=== PATIENT | female | born 1990 | race Caucasian/White ===

== ENCOUNTER 2017-05-24 03:43 | Inpatient (IN) | payer OTHER ==
[~2017-05-24] VITALS: Ht 165.1 cm; Wt 81.8 kg
[~2017-05-24 03:43] MED LIST: PREN1TAB60 PO
[2017-05-24] MEDS ORDERED: NEWBORN KIT ONE (04:05)
[2017-05-24] MEDS ORDERED: MISOPROSTOL 200 MCG TABLET ONE (04:05)
[2017-05-24] MEDS ORDERED: OXYTOCIN 30U/ 0.9% NaCL 500ML 500 ML ONE (04:06)
[2017-05-24] MEDS: D5%-LACTATED RINGERS 1,000 ML IV SCH ×2 (04:08→12:08)
[2017-05-24] MEDS ORDERED: OXYTOCIN 30U/ 0.9% NaCL 500ML 500 ML IV ONE (04:08)
[2017-05-24] MEDS ORDERED: FENTANYL PF 100 MCG/2ML ONE ×2 (04:13→04:56)
[2017-05-24 04:18] VITALS: BP 123/78
[2017-05-24] MEDS ORDERED: SODIUM CITRATE/CITRIC ACID 30 ML UDC PO PRN (04:30)
[2017-05-24] MEDS ORDERED: FENTANYL PF 100 MCG/2ML IVPush PRN (04:30)
[2017-05-24] MEDS ORDERED: METOCLOPRAMIDE 5 MG/ML, 2ML IVPush PRN (04:30)
[2017-05-24] MEDS ORDERED: CALCIUM CARBONATE 500 MG TAB.CHEW PO PRN (04:30)
[2017-05-24] MEDS ORDERED: ONDANSETRON 2MG/ML, 2ML IVPush PRN ×2 (04:30→06:00)
[2017-05-24] MEDS ORDERED: FENTANYL PF 100 MCG/2ML IV PRN (04:30)
[2017-05-24] MEDS: LACTATED RINGERS 1,000 ML IV SCH ×4 (04:40→13:55)
[2017-05-24 04:45] LABS: BASOPHILS # (AUTO) 0.08 x10^3/uL (0-0.1); BASOPHILS % (AUTO) 1 % (0-1); EOSINOPHILS # (AUTO) 0.07 x10^3/uL (0-0.4); EOSINOPHILS % (AUTO) 1 % (1-7); LYMPHOCYTES # (AUTO) 2.18 x10^3/uL (1-3.4); LYMPHOCYTES % (AUTO) 15 % (22-44); MD NO; MEAN CORPUSCULAR HEMOGLOBIN 30.6 pg (27.0-34.8); MEAN CORPUSCULAR HGB CONC 33.2 g/dL (32.4-35.8); MEAN CORPUSCULAR VOLUME 92.1 fL (80-100); MEAN PLATELET VOLUME 9.1 fL (7.4-10.4); MONOCYTES % (AUTO) 7 % (2-9); NEUTROPHILS # (AUTO) 11.04 x10^3/uL (1.8-6.8); NEUTROPHILS % (AUTO) 77 % (42-75); PLATELET COUNT 240 x10^3/uL (130-400); RED BLOOD COUNT 3.73 x10^6/uL (3.82-5.3); RED CELL DISTRIBUTION WIDTH 13.3 % (9.6-15.2)
[2017-05-24] MEDS ORDERED: FENTANYL/BUPIV./NS/PF 250 ML EPIDCONT ONE (04:56)
[2017-05-24] MEDS ORDERED: BUPIVACAINE 0.25% ONE (04:56)
[2017-05-24] MEDS ORDERED: LIDOCAINE/PF 1.5%-EPI 1:200K, 30ML ONE (05:01)
[2017-05-24] MEDS ORDERED: ONDANSETRON 2MG/ML, 2ML ONE (05:01)
[2017-05-24] MEDS ORDERED: FENTANYL/BUPIV./NS/PF 250 ML EPIDCONT SCH (05:55)
[2017-05-24] MEDS ORDERED: EPHEDRINE 50 MG/ML, 1ML ONE (05:59)
[2017-05-24] MEDS ORDERED: EPHEDRINE 50 MG/ML, 1ML IVPush PRN (06:00)
[2017-05-24] MEDS ORDERED: LACTATED RINGERS 1,000 ML IVBOLUS PRN (06:00)
[2017-05-24] MEDS ORDERED: OXYTOCIN 30U/ 0.9% NaCL 500ML 500 ML IV SCH (08:22)
[2017-05-24] MEDS ORDERED: MISOPROSTOL 200 MCG TABLET PR PRN (08:30)
[2017-05-24] MEDS ORDERED: ONDANSETRON 2MG/ML, 2ML IV PRN (08:30)
[2017-05-24] MEDS ORDERED: ACETAMINOPHEN 325 MG TABLET PO PRN ×2 (08:30)
[2017-05-24] MEDS ORDERED: METHYLERGONOVINE 0.2 MG/ML IM PRN (08:30)
[2017-05-24] MEDS ORDERED: OXYcodone IR 5MG TABLET PO PRN (08:30)
[2017-05-24] MEDS ORDERED: OXYcodone/APAP 5/325MG TABLET PO PRN (08:30)
[2017-05-24] MEDS ORDERED: IBUPROFEN 600 MG TABLET ONE (09:32)
[2017-05-24] MEDS: IBUPROFEN 600 MG TABLET PO PRN ×3 (09:34→21:35)
[2017-05-24 10:45] VITALS: BP 104/52
[2017-05-24 14:30] VITALS: BP 102/55
[2017-05-24 17:00] LABS: BASOPHILS # (AUTO) 0.05 x10^3/uL (0-0.1); BASOPHILS % (AUTO) 0 % (0-1); EOSINOPHILS # (AUTO) 0.07 x10^3/uL (0-0.4); EOSINOPHILS % (AUTO) 1 % (1-7); LYMPHOCYTES # (AUTO) 2.65 x10^3/uL (1-3.4); LYMPHOCYTES % (AUTO) 19 % (22-44); MD NO; MEAN CORPUSCULAR HEMOGLOBIN 31.2 pg (27.0-34.8); MEAN CORPUSCULAR HGB CONC 33.9 g/dL (32.4-35.8); MEAN CORPUSCULAR VOLUME 92.1 fL (80-100); MONOCYTES # (AUTO) 1.06 x10^3/uL (0.2-0.8); MONOCYTES % (AUTO) 8 % (2-9); NEUTROPHILS # (AUTO) 10.08 x10^3/uL (1.8-6.8); NEUTROPHILS % (AUTO) 72 % (42-75); PLATELET COUNT 238 x10^3/uL (130-400); RED BLOOD COUNT 3.65 x10^6/uL (3.82-5.3); RED CELL DISTRIBUTION WIDTH 13.6 % (9.6-15.2)
[2017-05-24 20:00] VITALS: BP 116/67
[2017-05-24] MEDS: DOCUSATE 100 MG CAPSULE PO PRN (21:35)
[2017-05-25 00:24] VITALS: BP 108/65
[2017-05-25] MEDS: IBUPROFEN 600 MG TABLET PO PRN ×2 (03:50→12:42)
[2017-05-25 03:54] VITALS: BP 110/70
[2017-05-25] MEDS: PRENATAL VIT/IRON/FA 1 EACH TABLET PO SCH ×2 (09:00→12:42)
[2017-05-25] MEDS: DOCUSATE 100 MG CAPSULE PO PRN (12:42)
== END 2017-05-25 13:10 | disposition home or self-care (01) | DRG 775 ==
LOC: LDOP 03:43 → LDIP 04:05 → 2NW 10:47
PROVIDERS: ADMIT Obstetrics & Gynecology; ATTEND Obstetrics & Gynecology
PROC: 10907ZC Drainage of Amniotic Fluid, Therapeutic from Products of Conception, Via Natural or Artificial Opening (ICD-10-PCS; principal; 2017-05-24)
PROC: 10E0XZZ Delivery of Products of Conception, External Approach (ICD-10-PCS; 2017-05-24)
PROC: 0W8NXZZ Division of Female Perineum, External Approach (ICD-10-PCS; 2017-05-24)
PROC: 3E0R3BZ Introduction of Anesthetic Agent into Spinal Canal, Percutaneous Approach (ICD-10-PCS; 2017-05-24)
PROC: 00HU33Z Insertion of Infusion Device into Spinal Canal, Percutaneous Approach (ICD-10-PCS; 2017-05-24)
DX: O80 Encounter for full-term uncomplicated delivery (principal); Z37.0 Single live birth; Z3A.39 39 weeks gestation of pregnancy; Z88.7 Allergy status to serum and vaccine
CPT/HCPCS: 36415; 85025; 86850; 86900; 96374; J2405; J3010; J3490; J2590; J7120